=== PATIENT | female | born 1985 | race Caucasian/White ===

== ENCOUNTER 2017-03-03 13:43 | Emergency (ER) | payer BC, OTHER ==
[~2017-03-03] VITALS: Ht 167.6 cm; Wt 60.0 kg
[2017-03-03 13:46] VITALS: BP 126/84; PULSE 67; RESP 16; TEMP 98.2; O2SAT 98
--- NOTE | 2017-03-03 14:50 | PD ---
HPI . right collarbone pain Chief Complaint: Injury Time Seen by Provider: 14:43 Travel History International Travel<30 days: No Contact w/Intl Traveler<30days: No Traveled to known affect area: No History of Present Illness HPI 31-year-old female with no past medical history here with complaints of right collarbone pain. Patient was trying out for [employer] when she somehow fell in between a gap and moved her right upper extremity awkwardly. Immediately she experienced pain in the area. She was placed in a sling by the staff for the filming and told to go to the emergency department. She is here complaining of pain in the AC joint. there appears to be a deformity in the joint. The clavicle seems to be protruding forward. There is no evidence of open fracture. PFSH Past Medical History ?: Not Social History Tobacco Use: No Review of Systems General / Constitutional: No: Fever Eyes: No: Visual changes HENT: No: Headaches Cardiovascular: No: Chest Pain or Discomfort Respiratory: No: Shortness of Breath Gastrointestinal: No: Abdominal Pain Genitourinary: No: Dysuria Musculoskeletal: Positive: Pain (right shoulder) Skin: No Rash Neurologic: No: Weakness Psychiatric: No: Depression Endocrine: No: Polydipsia Hematologic/Lymphatic: No: Easy Bruising Physical Exam Narrative GENERAL: AAO x 3, no acute distress, Well-nourished, well-developed patient. SKIN: Warm and dry. No visible rashes or bruising. HEAD: Normocephalic and atraumatic. EYES: No scleral icterus. No injection or drainage. EOM intact, PERRLA ENT: No nasal drainage noted. Mucous membranes pink. Airway patent. NECK: Supple, trachea midline. No JVD. CARDIOVASCULAR: Regular rate and rhythm without murmurs, gallops, or rubs. RESPIRATORY: Breath sounds equal bilaterally. No accessory muscle use. No rhonchi or rales. GASTROINTESTINAL: Abdomen soft, non-tender, nondistended. EXTREMITIES: No cyanosis or edema. Right AC joint: protruding bone without open fracture, tenderness to area BACK: Nontender without obvious deformity. No CVA tenderness. PSYCH: AAO x 3, normal affect. Data Data Last Documented VS Vital Signs Date Time Temp Pulse Resp B/P Pulse Ox O2 Delivery O2 Flow Rate FiO2 03/03/17 13:46 98.2 67 16 126/84 98 [facility] Medical Decision Making Medical Screen Exam Complete: Yes Emergency Medical Condition: Yes Medical Record Reviewed: Yes (no prior) Differential Diagnosis AC joint separation, clavicle fracture, less likely shoulder dislocation Narrative Course 31-year-old female with no past medical history here with complaints of right collarbone pain. Patient was trying out for [employer] when she somehow fell in between a gap and moved her right upper extremity awkwardly. Immediately she experienced pain in the area. She was placed in a sling by the staff for the filming and told to go to the emergency department. She is here complaining of pain in the AC joint. there appears to be a deformity in the joint. The clavicle seems to be protruding forward. There is no evidence of open fracture. Patient seen and examined. She appears to have a fracture of her clavicle. She'll more than likely need a medical bed for further workup and treatment. The provider who takes on her case will determine her disposition. Condition: Stable Milly Melchor Mar 03, 2017 14:50
--- NOTE | 2017-03-03 14:53 | PD ---
Physical Exam Time Seen by Provider: 14:53 Narrative Patient seen and evaluated initially in triage. Please refer to previous providers documentation for details surrounding the patient's current visit. Data Data Last Documented VS Vital Signs Date Time Temp Pulse Resp B/P Pulse Ox O2 Delivery O2 Flow Rate FiO2 03/03/17 17:18 98.2 71 16 117/76 98 03/03/17 14:54 Room Air Orders Clavicle (03/03/17 ) Splint Or Brace Apply/Monitor (03/03/17 14:54) Ondansetron Inj (Zofran Inj) (03/03/17 15:30) Morphine Inj (Morphine Inj) (03/03/17 15:30) Oxycodone-Acetamin 5-325 Mg (Percocet (03/03/17 15:30) Sling Cradle Arm (03/03/17 ) Ice / Cold Pack PRN (03/03/17 16:38) MDM Medical Record Reviewed: Yes Supervised Visit with BEBETO: No Differential Diagnosis Clavicle fracture versus dislocation versus contusion Narrative Course 31-year-old female presents to department for evaluation of right clavicular pain following an injury sustained while participating in [employer] course. X-ray of the right clavicle shows simple fracture through the medial portion of the diaphyses of the right clavicle. Fracture fragments are in bayonet apposition. Possible linear fracture through the body of the scapula. I have palpated the patient's entire scapula body. There is absolutely no tenderness elicited to palpation. She is not having any chest pain or difficulty breathing. Oxygen saturation is within normal limits. I discussed this with my attending physician and a sling is treatment also for a clavicle fracture. I have explained to the patient that if her symptoms worsen or she becomes short of breath to return immediately otherwise she is stable for discharge. I have explained her additional outpatient imaging may be warranted for further evaluation of her scapula. She is provided pain control and agrees to return immediately with any acute worsening of symptoms. Diagnosis Primary Impression: Right clavicle fracture Qualified Code: S42.021A - Closed displaced fracture of shaft of right clavicle, initial encounter Referrals: Orthopaedic Surgeon Primary Care Physician Patient Instructions: Clavicle Fracture (ED), General Instructions Departure Forms: Tests/Procedures, Work Release Enter return to work date: Mar 07, 2017 Additional Instruction: Ice to the affected area Sling for support Follow-up with clinical support specialist for further evaluation X-ray shows possible linear fracture or other scapula. Outpatient CT may be warranted for further examination this Return immediately with any acute worsening of symptoms. Med/Other Pt SpecificInfo: Prescription(s) given Scripts Hydrocodone-Acetaminophen (Lortab)5-325 Mg Tab1 Tab PO Q6H PRN (PAIN GREATER THAN 5) #15 TAB Ref 0 Prov:Benjamin Caldwell MD 03/03/17 Ibuprofen 600 Mg [id number] Mg PO Q8HR PRN (PAIN) #30 TAB Ref 0 Prov:Martha Caor 03/03/17 Disposition: 01 DISCHARGE HOME Condition: Stable Martha Caro Mar 03, 2017 14:53
[2017-03-03] MEDS ORDERED: oxyCODONE/ACETAMINOPHEN 5 MG/325 MG TAB PO ONE (15:30)
[2017-03-03] MEDS ORDERED: MORPHINE SULFATE 4 MG/ML INJ IV PUSH ONE (15:30)
[2017-03-03] MEDS ORDERED: ONDANSETRON HCL 4 MG/2 ML VIAL IV ONE (15:30)
--- NOTE | 2017-03-03 17:01 | RADRPT ---
EXAM DATE/TIME: 03/03/2017 15:38 [facility] COMPARISON: No previous studies available for comparison. INDICATIONS : Right clavicle pain, fell doing [employer] course. MEDICAL HISTORY : None. SURGICAL HISTORY : None. ENCOUNTER: Initial ACUITY: 1 day PAIN SCORE: 10/10 LOCATION: Right clavicle FINDINGS: Two view examination of the right clavicle demonstrates a fracture of the right clavicular diaphysis. Fracture fragments are in bayonet apposition. There is suggestion of a linear fracture through the b mehul of the scapula as well. Visualized portions of the adjacent lung are clear. CONCLUSION: 1. Simple fracture through the medial portion of the diaphysis of the right clavicle. Fracture fragme nts are in bayonet apposition. 2. Possible linear fracture through the body of the scapula as well. Solo Brooks MD on March 03, 2017 at 16:58 Board Certified Radiologist. This report was verified electronically.
[2017-03-03] MEDS ORDERED: IBUP-232 PO (17:10)
[2017-03-03] MEDS ORDERED: HYDR-3533 PO (17:11)
[2017-03-03 17:18] VITALS: BP 117/76; PULSE 71; RESP 16; TEMP 98.2; O2SAT 98
== END 2017-03-03 18:26 | disposition home or self-care (01) ==
LOC: NEPE 13:43
DX: S42.021A Displaced fracture of shaft of right clavicle, initial encounter for closed fracture (principal); X50.0XXA Overexertion from strenuous movement or load, initial encounter; Y93.59 Activity, other involving other sports and athletics played individually; Y92.39 Other specified sports and athletic area as the place of occurrence of the external cause; Y99.9 Unspecified external cause status
CPT/HCPCS: 29240; 73000